=== PATIENT | female | born 1950 | race Caucasian/White ===

== ENCOUNTER 2017-02-19 10:36 | Emergency (ER) | payer MEDICARE, OTHER ==
[~2017-02-19] VITALS: Ht 154.9 cm; Wt 63.0 kg
[2017-02-19 10:49] VITALS: Ht 154.9 cm; Wt 63.0 kg
--- NOTE | 2017-02-19 13:09 | RADRPT ---
PROCEDURE: XR Chest 1 View. CLINICAL INDICATION: Cough and chest pain TECHNIQUE: AP view of the chest was obtained. COMPARISON: None. FINDINGS: The cardiomediastinal silhouette is within normal limits. Mild elevation right hemidiaphragm is iden tified. The lungs are hyperexpanded. No consolidations are identified. No pneumothorax is seen. T he osseous structures appear grossly intact IMPRESSION: Mild elevation of the right hemidiaphragm. Hyperexpanded, clear lungs. RPTAT: AA .Aries Williamson MD, MD Date Time Electronically viewed and signed by .Aries Williamson MD, on 02/19/2017 13:09 .P/
[2017-02-19 13:42] LABS: ADD SCAN DIFF NO
[2017-02-19 13:45] LABS: BASOPHILS % 0.2 % (0.0-2.0); EOSINOPHILS # 0.1 10^3/ul (0.0-0.5); HEMOGLOBIN 12.6 g/dl (12.0-16.0); LYMPHOCYTES # 2.8 10^3/ul (0.8-2.9); LYMPHOCYTES % 48.4 % (15.0-51.0); MEAN CORPUSCULAR HEMOGLOBIN 28.8 pg (29.0-33.0); MEAN CORPUSCULAR HGB CONC 32.3 g/dl (32.0-37.0); MEAN CORPUSCULAR VOLUME 89.2 fl (82.0-101.0); MEAN PLATELET VOLUME 10.9 fl (7.4-10.4); MONOCYTE # 0.3 10^3/ul (0.3-0.9); MONOCYTES % 5.9 % (0.0-11.0); NEUTROPHIL # 2.5 10^3/ul (1.6-7.5); NEUTROPHILS % 44.3 % (39.0-77.0); PLATELET COUNT 211 10^3/UL (140-415); RED BLOOD COUNT 4.37 10^6/ul (4.20-5.40); RED CELL DISTRIBUTION WIDTH 13.2 % (11.5-14.5); WHITE BLOOD COUNT 5.7 10^3/ul (4.8-10.8)
[2017-02-19 14:01] LABS: INR 0.89; PARTIAL THROMBOPLASTIN TIME 24.8 Sec (25.0-35.0); PT RATIO 0.9
[2017-02-19 14:10] LABS: ALBUMIN 4.3 g/dl (3.3-4.9)
[2017-02-19 14:11] LABS: CHLORIDE 100 mmol/L (97-110); POTASSIUM 4.5 mmol/L (3.5-5.1); SODIUM 140 mmol/L (135-144)
[2017-02-19 14:13] LABS: ANION GAP 17 (8-16); ASPARTATE AMINO TRANSFERASE 20 IU/L (15-46); BILIRUBIN,INDIRECT 0.1 mg/dl (0-1.1); BILIRUBIN,TOTAL 0.1 mg/dl (0.2-1.3); BLOOD UREA NITROGEN 23 mg/dl (7-20); CARBON DIOXIDE 28 mmol/L (21-31); CREATININE 0.79 mg/dl (0.44-1.00); TOTAL PROTEIN 8.6 g/dl (6.1-8.1)
[2017-02-19 14:14] LABS: ALANINE AMINOTRANSFERASE 36 IU/L (13-69); ALKALINE PHOSPHATASE 75 IU/L (42-121); CALCIUM 9.6 mg/dl (8.4-10.2); GLUCOSE 280 mg/dl (70-220)
[2017-02-19 14:27] LABS: TROPONIN-I < 0.012 ng/ml (0.00-0.12)
[2017-02-19] MEDS ORDERED: ACETAMINOPHEN 325 MG TAB PO ONE (14:30)
[2017-02-19] MEDS ORDERED: ATENOLOL 50 MG TAB PO ONE (14:30)
[2017-02-19 15:26] LABS: ADD UMIC YES; URINE BILIRUBIN (Dip) NEGATIVE (NEGATIVE); URINE BLOOD (Dip) TRACE (NEGATIVE); URINE COLOR LT. YELLOW (YELLOW); URINE KETONES (Dip) NEGATIVE (NEGATIVE); URINE LEUKOCYTE ESTERASE (Dip) NEGATIVE (NEGATIVE); URINE NITRITE (Dip) NEGATIVE (NEGATIVE); URINE TOTAL PROTEIN (Dip) NEGATIVE (NEGATIVE); URINE UROBILINOGEN (Dip) 0.2 E.U./dL (0.1-1.0)
[2017-02-19 15:34] VITALS: BP 183/77
[2017-02-19 15:48] LABS: SQUAMOUS EPITHELIAL CELL,UR RARE; URINE RBCS 0-2 /HPF (0)
[2017-02-19] MEDS ORDERED: IBUP400T22 PO (16:27)
[2017-02-19] MEDS ORDERED: ACET500C5 PO (16:27)
--- NOTE | 2017-02-19 17:06 | ERD ---
ER Documentation Chief Complaint Date/Time DATE: 02/19/17 TIME: 17:01 Chief Complaint Pt with back pain 2-3 days, no injury reported. HPI 66-year-old female patient with no significant past medical history presents the ED complaining of back pain that occurred 3 days ago. Reports no injuries. States that it feels like an achy type of pain and rates it a 9 out of 10. Reports that she has been taking ibuprofen with relief of her symptoms. Reports that the pain is in the left flank region and radiates to the chest and left upper quadrant region. Denies any nausea, vomiting, diarrhea, shortness of breath, dyspnea on exertion, wheezing, cough, fever, orthopnea, pleuritic chest pain, hematemesis, hemoptysis. Denies any dysuria, urgency, frequency, hematuria. ROS All systems reviewed and are negative except as per history of present illness. Medications Home Meds Active Scripts Ibuprofen* (Motrin*) 400 Mg Tab, 400 MG PO Q6, #30 TAB Prov:FRANCIE TRAN PA-C 02/19/17 Acetaminophen* (Tylophen*) 500 Mg Capsule, 1 CAP PO Q6H Y for PAIN AND OR ELEVATED TEMP, #20 CAP Prov:FRANCIE TRAN PA-C 02/19/17 PMhx/Soc Medical and Surgical Hx: pt denies Medical Hx, pt denies Surgical Hx Hx Alcohol Use: No Hx Substance Use: No Hx Tobacco Use: No Smoking Status: Never smoker Physical Exam Vitals Vital Signs Date Time Temp Pulse Resp B/P Pulse Ox O2 Delivery O2 Flow Rate FiO2 02/19/17 15:34 183/77 02/19/17 14:36 203/87 02/19/17 10:49 99.1 70 16 191/76 99 Physical Exam Const: [id number], well-nourished. In no acute distress. Head: Atraumatic, normocephalic Eyes: Normal Conjunctiva without injection. No purulent discharge. ENT: Normal external ear, nose. Moist oropharynx without tonsillar exudates. Non -erythematous pharynx. Uvula midline. No drooling. No trismus. Neck: No cervical midline tenderness. Full range of motion. No meningismus. No cervical lymphadenopathy. No JVD. Resp: Clear to auscultation bilaterally. No wheezing, rhonchi, rales, or crackles. No accessory muscle use. No retractions. Cardio: Regular rate and rhythm. No murmurs, rubs or gallops. Abd: Soft, nontender, non distended. Normal bowel sounds. No palpable masses. No rebound tenderness. No guarding. Negative McBurney's point. Negative psoas sign. Negative obturator sign. Skin: No petechiae or rashes Back: No midline tenderness. No CVA tenderness. Tenderness to palpation of left lumbar muscles. Full range of motion. Ext: No cyanosis, or edema. Neur: Awake and alert. Normal gait. Normal coordination. Psych: Normal Mood and Affect Results 24 hrs Laboratory Tests Test 02/19/17 13:30 02/19/17 15:15 White Blood Count 5.710^3/ul Red Blood Count 4.3710^6/ul Hemoglobin 12.6g/dl Hematocrit 39.0% Mean Corpuscular Volume 89.2fl Mean Corpuscular Hemoglobin 28.8pg Mean Corpuscular Hemoglobin Concent 32.3g/dl Red Cell Distribution Width 13.2% Platelet Count 00735^3/UL Mean Platelet Volume 10.9fl Neutrophils % 44.3% Lymphocytes % 48.4% Monocytes % 5.9% Eosinophils % 1.0% Basophils % 0.2% Nucleated Red Blood Cells % 0.0/100WBC Neutrophils # 2.510^3/ul Lymphocytes # 2.810^3/ul Monocytes # 0.310^3/ul Eosinophils # 0.110^3/ul Basophils # 0.010^3/ul Nucleated Red Blood Cells # 0.010^3/ul Prothrombin Time 12.0Sec Prothrombin Time Ratio 0.9 INR International Normalized Ratio 0.89 Activated Partial Thromboplast Time 24.8Sec Sodium Level 140mmol/L Potassium Level 4.5mmol/L Chloride Level 100mmol/L Carbon Dioxide Level 28mmol/L Anion Gap 17 Blood Urea Nitrogen 23mg/dl Creatinine 0.79mg/dl Glucose Level 280mg/dl Calcium Level 9.6mg/dl Total Bilirubin 0.1mg/dl Direct Bilirubin 0.00mg/dl Indirect Bilirubin 0.1mg/dl Aspartate Amino Transf (AST/SGOT) 20IU/L Alanine Aminotransferase (ALT/SGPT) 36IU/L Alkaline Phosphatase 75IU/L Troponin I < 0.012ng/ml Total Protein 8.6g/dl Albumin 4.3g/dl Globulin 4.30g/dl Albumin/Globulin Ratio 1.00 Lipase 88U/L Urine Color LT. YELLOW Urine Clarity CLEAR Urine pH 6.0 Urine Specific [place] 1.020 Urine Ketones NEGATIVE Urine Nitrite NEGATIVE Urine Bilirubin NEGATIVE Urine Urobilinogen 0.2 E.U./dL Urine Leukocyte Esterase NEGATIVE Urine Microscopic RBC 0-2/HPF Urine Microscopic WBC 0-2/HPF Urine Squamous Epithelial Cells RARE Urine Hemoglobin TRACE Urine Glucose 0.25%% Urine Total Protein NEGATIVE Current Medications Medications (Trade) Dose Ordered Sig/Dyllan Route PRN Reason Start Time Stop Time Status Last Admin Dose Admin Acetaminophen (Tylenol Tab) 650 mg ONCE ONCE PO 02/19/17 14:30 02/19/17 14:31 DC 02/19/17 14:30 Atenolol (Tenormin) 50 mg ONCE ONCE PO 02/19/17 14:30 02/19/17 14:31 DC 02/19/17 14:33 Procedures/MDM This is a 66-year-old female patient with a past medical history of diabetes, arthritis, hypertension presents to the ED complaining of left back pain that started 3 days ago. Patient is afebrile and nontoxic-appearing. Patient has normal vital signs. Since patient reports that the pain radiates to her chest and left upper quadrant region, this case was discussed with my supervising physician, Dr. Silva. Patient was further worked up with CBC, CMP, lipase, UA, troponin. Patient's pain and symptoms have improved after treatment with Tylenol. CBC: No leukocytosis. No e/o of systemic infection. No e/o anemia. CMP: No e/o severe acidosis, alkalosis, renal failure, diabetic ketoacidosis, liver disease Lipase within normal limits. Urine: No leukocyte esterase, no nitrites, no hematuria. Troponin < 0.12 PROCEDURE: XR Chest 1 View. CLINICAL INDICATION: Cough and chest pain TECHNIQUE: AP view of the chest was obtained. COMPARISON: None. FINDINGS: The cardiomediastinal silhouette is within normal limits. Mild elevation right hemidiaphragm is identified. The lungs are hyperexpanded. No consolidations are identified. No pneumothorax is seen. The osseous structures appear grossly intact IMPRESSION: Mild elevation of the right hemidiaphragm. Hyperexpanded, clear lungs. EKG reviewed and interpreted by Dr. Silva Rate/Rhythm: [64 bpm, Normal Sinus Rhythm] No ectopy, no ST elevations, normal axis. QRS, ST, T-waves: [No changes consistent w/ acute ischemia] Impression: [No evidence of ischemia or arrhythmia] Patient was educated that differentials include musculoskeletal however if rash appears differentials include herpes zoster. Low suspicion for acute myocardial infarction, pneumothorax, pneumonia, cardiac tamponade, pulmonary embolism, AAA, pancreatitis, aortic dissection, Boerhaave's syndrome, cardiac dysrhythmias,meningitis, intracranial bleed, seizure, stroke, TIA or other emergent conditions. No midline tenderness. No indication for x-ray of lumbar spine. Patient is ambulating here in the ED without difficulty. Denies saddle anesthesia, numbness or tingling, urine or bowel incontinence, weakness. Low suspicion for cauda equina syndrome, cord compression, nephrolithiasis, aortic aneurysm, aortic dissection, epidural abscess, spinal hematoma, malignancy, pyelonephritis, or other emergent conditions. Discharge medications: Ibuprofen, Tylenol Follow up with primary care physician in 1-2 days for referral to nylon mender. Instructed patient to return to the ED sooner for any worsening symptoms. Patient's questions were answered. Patient understood and agreed with discharge plan. Patient discharged stable. Departure Diagnosis: Primary Impression: Back pain Back pain location: low back pain Chronicity: unspecified Back pain laterality: unspecified Sciatica presence: unspecified whether sciatica present Qualified Code: M54.5 - Low back pain, unspecified back pain laterality, unspecified chronicity, with sciatica presence unspecified Condition: Stable Patient Instructions: Muscle Spasm, Back Pain (Acute Or Chronic) Referrals: [facility] YOU HAVE RECEIVED A MEDICAL SCREENING EXAM AND THE RESULTS INDICATE THAT YOU DO NOT HAVE A CONDITION THAT REQUIRES URGENT TREATMENT IN THE EMERGENCY DEPARTMENT. FURTHER EVALUATION AND TREATMENT OF YOUR CONDITION CAN WAIT UNTIL YOU ARE SEEN IN YOUR DOCTORS OFFICE WITHIN THE NEXT 1-2 DAYS. IT IS YOUR RESPONSIBILITY TO MAKE AN APPOINTMENT FOR FOLOW-UP CARE. IF YOU HAVE A PRIMARY DOCTOR --you should call your primary doctor and schedule an appointment IF YOU DO NOT HAVE A PRIMARY DOCTOR YOU CAN CALL OUR PHYSICIAN REFERRAL HOTLINE AT IF YOU CAN NOT AFFORD TO SEE A PHYSICIAN YOU CAN CHOSE FROM THE FOLLOWING [facility] [address] [place] [address] [facility] [address] [facility] [address] [facility] [address] [facility]. [facility] [address] [facility]. [facility] YOU HAVE RECEIVED A MEDICAL SCREENING EXAM AND THE RESULTS INDICATE THAT YOU DO NOT HAVE A CONDITION THAT REQUIRES URGENT TREATMENT IN THE EMERGENCY DEPARTMENT. FURTHER EVALUATION AND TREATMENT OF YOUR CONDITION CAN WAIT UNTIL YOU ARE SEEN IN YOUR DOCTORS OFFICE WITHIN THE NEXT 1-2 DAYS. IT IS YOUR RESPONSIBILITY TO MAKE AN APPOINTMENT FOR FOLOW-UP CARE. IF YOU HAVE A PRIMARY DOCTOR --you should call your primary doctor and schedule and appointment IF YOU DO NOT HAVE A PRIMARY DOCTOR YOU CAN CALL OUR PHYSICIAN REFERRAL HOTLINE AT . IF YOU CAN NOT AFFORD TO SEE A PHYSICIAN YOU CAN CHOSE FROM THE FOLLOWING [facility]IATRIC HOSPITAL INSTITUTIONS: [facility] [address] [place] [address] [facility] [address] [place] [address] [facility] [address] [place] [address] [facility] Additional Instructions: Apply warm compresses to the muscular pain of the left side of your back. Call your primary care doctor TOMORROW for an appointment during the next 2-3 days.See the doctor sooner or return here if your condition worsens before your appointment time. FRANCIE TRAN PA-C February 19, 2017 17:06 FRANCIE TRNA PA-C February 19, 2017 17:06
== END 2017-02-19 16:44 | disposition home or self-care (01) ==
LOC: FTE 10:36
DX: M54.5 Low back pain (principal)
CPT/HCPCS: 71010; 80053; 81001; 81003; 83690; 84484; 85025; 85610; 85730; 93005